=== PATIENT | male | born 1990 | race Two or more races ===

== ENCOUNTER → 2016-11-29 | Outpatient (REF) | payer OTHER | LOC: M SMT 10:00 | PROVIDERS: ATTEND Urology | DX: Z30.2 Encounter for sterilization (principal) ==

== ENCOUNTER → 2016-12-27 | Outpatient (REF) | payer OTHER ==
[2016-12-27 11:55] LABS: MOTILE SPERM PRESENT (ABSENT); SPERM ABNORMAL FORMS WBC'S NOTED
[2016-12-27 11:56] LABS: IMMMOTILE SPERM CENTRIFUGED PRESENT (ABSENT); IMMOTILE SPERM PRESENT (ABSENT); MOTILE SPERM CENTRIFUGED PRESENT (ABSENT)
== END ==
LOC: M SMT 11:39
PROVIDERS: ATTEND Urology
DX: Z30.2 Encounter for sterilization (principal)

== ENCOUNTER → 2017-01-24 | Outpatient (REF) | payer OTHER ==
[2017-01-24 10:09] LABS: MOTILE SPERM PRESENT (ABSENT)
[2017-01-24 10:10] LABS: IMMMOTILE SPERM CENTRIFUGED PRESENT (ABSENT); IMMOTILE SPERM PRESENT (ABSENT); MOTILE SPERM CENTRIFUGED PRESENT (ABSENT)
[2017-01-24 10:14] LABS: SPERM ABNORMAL FORMS OTHER (SPECIFIY)
== END ==
LOC: M SMT 09:30
PROVIDERS: ATTEND Urology
DX: Z98.52 Vasectomy status (principal)

== ENCOUNTER → 2020-08-02 | Outpatient (REF) | payer OTHER ==
[2020-08-02 11:40] LABS: BASO # 0.1 10^3/uL (0.0-0.2); BASO % 1.2 % (0.0-1.0); EOS # 0.2 10^3/uL (0.0-0.5); EOS % 2.9 % (0.0-3.0); HEMATOCRIT 45.5 % (42.0-52.0); LYMPH # 2.5 10^3/uL (1.5-5.0); LYMPH % 42.7 % (24.0-44.0); MEAN CORPUSCULAR HEMOGLOBIN 27.9 pg (27.0-33.0); MEAN CORPUSCULAR VOLUME 84.7 fl (80.0-96.0); MONO # 0.5 10^3/uL (0.0-0.8); NEUTROPHILS # 2.5 10^3/uL (1.5-8.5); NEUTROPHILS % 43.7 % (36.0-66.0); PLATELET COUNT, AUTOMATED 257 10^3/uL (150-450); RED BLOOD COUNT 5.37 10^6/uL (4.30-6.10); WHITE BLOOD COUNT 5.8 10^3/uL (4.0-10.0)
[2020-08-02 11:54] LABS: HEMOGLOBIN A1c 5.2 %
[2020-08-02 12:12] LABS: ALBUMIN 4.3 GM/DL (3.2-5.2); ALT/SGPT 57 U/L (12-78); BILIRUBIN,TOTAL 0.3 MG/DL (0.2-1.0); BLOOD UREA NITROGEN 14 MG/DL (7-18); CARBON DIOXIDE LEVEL 31 MEQ/L (21-32); CHLORIDE LEVEL 107 MEQ/L (98-107); CHOLESTEROL LEVEL 147 MG/DL (<200); CREATININE FOR GFR 1.09 MG/DL (0.70-1.30); FREE T4 1.12 NG/DL (0.76-1.46); GLOMERULAR FILTRATION RATE > 60.0 (>60); GLUCOSE, FASTING 96 MG/DL (70-100); HDL CHOLESTEROL 21 MG/DL (>40); LDL CHOLESTEROL 50 MG/DL (<100); NON-HDL-C 126 MG/DL; POTASSIUM SERUM 4.1 MEQ/L (3.5-5.1); SODIUM LEVEL 140 MEQ/L (136-145); TOTAL PROTEIN 7.7 GM/DL (6.4-8.2); TRIGLYCERIDES LEVEL 379 MG/DL (<150)
== END ==
LOC: M SFHCCLAY 08:37
PROVIDERS: ATTEND Nurse Practitioner Family
DX: E66.9 Obesity, unspecified (principal); R23.9 Unspecified skin changes